=== PATIENT | male | born 1970 | race Caucasian/White ===

== ENCOUNTER 2016-07-01 11:29 | Day surgery (SDC) | payer BC ==
[2016-06-27 08:23] LABS: HEMATOCRIT 47.5 % (40.0-51.0); HEMOGLOBIN 16.8 g/dL (13.6-17.8)
[2016-06-27 08:44] LABS: BUN (BLOOD UREA NITROGEN) 16 MG/DL (6-23); CALCIUM, SERUM 9.5 MG/DL (8.5-10.4); CHLORIDE, SERUM 106 MMOL/L (96-112); CO2 (CARBON DIOXIDE) 29 MMOL/L (24-34); CREATININE 0.96 MG/DL (0.70-1.30); GFR AFRICAN AMERICAN 109 ML/MIN (>=60); GFR NON AFRICAN AMERICAN 94 ML/MIN (>=60); GLUCOSE, SERUM 113 MG/DL (60-99); POTASSIUM, SERUM 4.2 MMOL/L (3.5-5.3); SODIUM, SERUM 142 MMOL/L (135-148)
--- NOTE | ~2016-07-01 | OP ---
Record Of Operation [facility] [address] [place]. [address] NAME: CALVIN LIANG III : 70 STATUS : [facility]#: [id number] AGE: 46 ADM/REG DATE : 07/01/16 MR#: [id number] REPORT SERV DATE: 07/01/16 DICTATED BY: Sil GORE DATE: 07/01/16 REPORT STATUS : Draft TRANSCRIBED BY: MODL DATE: 07/01/16 DATE OF PROCEDURE: 07/01/2016 PREOPERATIVE DIAGNOSIS: Multiple penile lesions. POSTOPERATIVE DIAGNOSIS: Multiple penile lesions. PROCEDURE: Excisional biopsy, laser ablation of multiple penile lesions (greater than 3.0 cm in size). SURGEON: Sil Gore M.D. ANESTHESIA: General. COMPLICATIONS: None. DRAINS: None. BRIEF HISTORY: Mr. Liang is a 46-year-old white male, who presented with multiple lesions on the shaft of his penis extending to the base that he states have been present for years. They seem to be enlarging and were more irritated. He last year. We discussed management options including topical therapy and excision with and without laser. These lesions were quite fragmented and seemed a little bit too large to consider reasonable topical therapy. We discussed the risks of bleeding, infection, anesthesia, injury to the adjacent organs, the cosmetic appearance of the penis postoperatively and the fact that these could recur if indeed they are HPV if they are viral in nature. DESCRIPTION OF PROCEDURE: Under excellent general anesthesia, the patient was prepped and draped in a standard supine position. The patient had noted 4 lesions, some hair was removed from around these lesions. I think I saw an additional 5th lesion. A large pedunculated type lesion on the left shaft was removed with the scissors and the base was then cauterized and ultimately treated with the laser. A second larger proximal lesion was excised as well. The rest of the lesions were flat and I felt better treated with simple laser. After fulgurating the base of the above-mentioned lesions, the holmium YAG laser was used with appropriate soft tissue settings, and all condyloma-like areas were treated in addition to the periphery of the 2 layers excised. There was no significant bleeding and I applied a triple antibiotic cream to all spots. I plan to discharge Mr. Liang as an outpatient with the following instructions: DISCHARGE INSTRUCTIONS: 1. Home today. Continue Neosporin for 72 hours and stop. 2. Hydrocodone 5/325 one to two p.o. q.4 hours p.r.n. pain, #15. 3. Followup in my office in 3 to 4 weeks to review pathology and inspect wounds. Record Of Operation [address] [place] [id number] NAME: CALVIN LIANG III : 70 STATUS : [facility] PAT#: [id number] AGE: 46 ADM/REG DATE : 07/01/16 MR#: [id number] REPORT SERV DATE: 07/01/16 DICTATED BY: Sil GORE DATE: 07/01/16 REPORT STATUS : Draft TRANSCRIBED BY: CAMILO DATE: 07/01/16 SHWETA/CAMILO Sil Gore M.D. / [id number] CC: Nick Veras M.D.
[~2016-07-01 11:29] MED LIST: ASAB PO; EXFORGE1 TA3 PO; FARXIGA10 PO; FORTAMET1000 MG PO; TOUJEO SC; VICTOZA18 MG/3 ML SC
== END 2016-07-01 18:07 | disposition home or self-care (01) ==
LOC: SDC 11:29
PROC: 0H5AXZD Destruction of Inguinal Skin, Multiple, External Approach (ICD-10-PCS; 2016-07-01)
PROC: 0VBSXZX Excision of Penis, External Approach, Diagnostic (ICD-10-PCS; principal; 2016-07-01 12:45)
DX: A63.0 Anogenital (venereal) warts (principal); L82.1 Other seborrheic keratosis; E11.9 Type 2 diabetes mellitus without complications; I10 Essential (primary) hypertension; K21.9 Gastro-esophageal reflux disease without esophagitis; Z88.2 Allergy status to sulfonamides; Z79.82 Long term (current) use of aspirin; Z79.4 Long term (current) use of insulin; Z79.84 Long term (current) use of oral hypoglycemic drugs; Z79.899 Other long term (current) drug therapy; Z98.890 Other specified postprocedural states
CPT/HCPCS: 80048; 82962; 85014; 85018; 88305; 93005; 94640; A9270-GY; J0690; J2250; J2405; J3010